=== PATIENT | male | born 1985 | race Caucasian/White ===

== ENCOUNTER 2019-11-08 23:48 | Emergency (ER) | payer OTHER ==
[~2019-11-08] VITALS: Ht 188 cm; Wt 98.7 kg
[2019-11-09 00:03] VITALS: BP 157/100
[2019-11-09] MEDS ORDERED: DIPH,PERTUSS(ACELL),TET VAC/PF 0.5 ML IM-VACC ONE ×2 (00:30→02:21)
[2019-11-09] MEDS ORDERED: LIDOCAINE 2%, 20ML SQ ONE (00:30)
[2019-11-09] MEDS ORDERED: BUPIVACAINE 0.25% INFIL ONE (00:30)
[2019-11-09] MEDS ORDERED: AMPH20TA2 PO (02:14)
[2019-11-09] MEDS ORDERED: LIDOCAINE-MPF 2% ,5ML ONE (02:21)
[2019-11-09] MEDS ORDERED: BUPIVACAINE 0.25% ONE (02:21)
--- NOTE | 2019-11-09 02:23 | NUR ---
ERP AT PT'S BEDSID CARMENZA ZAPATA
[2019-11-09] MEDS ORDERED: NEOSPORIN OINT. PKT 1 PACKET ONE (02:26)
--- NOTE | 2019-11-09 02:51 | NUR ---
LUHATION PROVIDED PT WITH WORK COMP PAPER WORK
== END 2019-11-09 02:54 | disposition home or self-care (01) ==
LOC: ED 11-09 01:04
DX: S61.213A Laceration without foreign body of left middle finger without damage to nail, initial encounter (principal); F17.200 Nicotine dependence, unspecified, uncomplicated; W25.XXXA Contact with sharp glass, initial encounter; Y93.89 Activity, other specified; Y92.69 Other specified industrial and construction area as the place of occurrence of the external cause; Y99.0 Civilian activity done for income or pay
CPT/HCPCS: 90471; 90715; 99283